=== PATIENT | male | born 1990 | race Two or more races ===

== ENCOUNTER 2023-09-03 10:59 | Emergency (ER) | payer OTHER ==
[~2023-09-03] VITALS: Ht 170.2 cm; Wt 91.0 kg
[2023-09-03] MEDS: ketorolac trometh. 30mg/ml inj. IM ONE (11:57)
[2023-09-03 12:47] VITALS: BP 138/78; PULSE 70; RESP 14; TEMP 97.9; O2SAT 98
== END 2023-09-03 12:48 | disposition home or self-care (01) ==
LOC: EDSEX 11:00 → ER 11:00
DX: S83.8X1A Sprain of other specified parts of right knee, initial encounter (principal); X58.XXXA Exposure to other specified factors, initial encounter; Y93.89 Activity, other specified; Y92.89 Other specified places as the place of occurrence of the external cause; Y99.8 Other external cause status
CPT/HCPCS: 73564; 96372; 99283; J1885